=== PATIENT | male | born 1990 | race Caucasian/White ===

== ENCOUNTER 2022-12-25 14:39 | Emergency (ER) | payer OTHER, SELFPAY ==
[2022-12-25 14:42] VITALS: BP 134/95; PULSE 114; RESP 18; TEMP 36.8; O2SAT 99; BMI 25.9
--- NOTE | 2022-12-25 15:22 | ED.VIS.GI ---
HPI HPI - GI History of Present Illness Chief Complaint: GI Bleed Detail of Chief Complaint: Rectal bleeding Informant: patient Narrative Narrative: Patient presents to the emergency department with rectal bleeding since yesterday. Patient feels a small amount of discomfort to his rectum and feels a lump back there and thinks he might have a hemorrhoid. Patient denies any abdominal pain. He had no fever or chills or sweats. Denies feeling lightheaded or dizzy. He denies feeling weak. Patient went to work today and saturated through 2 pair of underwear so he comes in for evaluation. PFSH PFSH Home Medications hydrocortisone acetate 25 mg rectal suppository (Anusol-HC) 25 mg ID DAILY #12 ea 12/25/22 [Rx Last Taken Unknown] Allergy/AdvReac Type Severity Reaction Status Date / Time peanut Allergy Anaphylaxis Verified 12/25/22 14:41 ROS ROS ED Review of Systems ROS Unobtainable: other Constitutional Constitutional ED: Reports lethargy; Denies chills, fever(s), sweats or weight loss Eyes Eyes: Denies blurry vision, change in vision or diplopia ENT ENT ED: Denies rhinorrhea or sore throat Cardiovascular Cardiovascular: Denies chest pain, orthopnea or racing heartbeat Respiratory/Chest Respiratory/Chest: Denies cough, dyspnea, dyspnea on exertion, orthopnea or sputum Gastrointestinal Gastrointestinal: Reports other Details: Rectal bleeding ; Denies abdominal pain, diarrhea, nausea or vomiting Genitourinary Genitourinary ED: Denies dysuria, hematuria or urinary frequency Musculoskeletal Musculoskeletal: Denies arthralgias, back pain, myalgias or neck pain Integumentary Denies abscess, Abrasions or rash Neurologic Neurologic: Denies headache(s) or weakness Psychiatric Psychiatric: Denies anxiety, depression or suicidal thoughts Endocrine Endocrinology: Denies polydipsia, polyphagia or polyuria Hematologic/Lymphatic Hematologic/Lymphatic: Denies easy bleeding, easy bruising or lymphadenopathy Allergic/Immunologic Allergic/Immunologic ED: Denies mouth swelling, tongue swelling or urticaria EXAM Physical Exam Const Vital Signs: 12/25/22 14:42 Temperature 98.2 F Temperature Source Temporal Pulse Rate 114 H Respiratory Rate 18 Blood Pressure 134/95 H Blood Pressure Mean 108 Pulse Ox 99 Oxygen Delivery Method Room Air Positive well nourished and well developed General Appearance ED: well developed and NAD HEENT Reports TM's clear and moist mucous membranes normocephalic and atraumatic; Negative for trauma or tenderness Tympanic Membrane ED: Yes TM's clear Eyes PERRL and EOMs intact bilaterally General Eye ED: Negative for pale conjunctiva or scleral icterus Neck no lymphadenopathy, supple and no JVD General: Negative for tenderness Chest Wall inspection of chest normal and palpation of chest normal Chest: Negative for tenderness Resp normal respiratory effort and clear to auscultation bilaterally Effort and Inspection: Negative for respiratory distress or pain with movement Auscultation: Negative for rhonchi, wheezes or diminished lung sounds Cardio regular rate, regular rhythm, S1 normal heart sound, S2 normal heart sound and no murmurs Peripheral Pulses: pulses 2+ throughout GI normal to inspection, nondistended, normoactive bowel sounds, soft to palpation, non-tender, non-distended and no masses GI Narrative: On rectal exam. Patient has a ulcerated and thrombosed hemorrhoid with clot extruding from the hemorrhoid at approximately 12 o'clock position. Back/Spine no CVA tenderness and no thoracic nor lumbar tenderness Extremity normal to inspection General Extremety ED: Negative for edema General Extremity: Negative for edema Neuro oriented x3, CN's II-XII intact bilaterally, no sensory deficits noted and gait normal Sensorium / Orientation: awake, alert, oriented to person, oriented to place and oriented to time Motor Exam: strength 5/5 throughout and strength abnormal Psych mental status grossly normal Skin no rashes or lesions noted and no wounds MDM MDM MDM Narrative Medical decision making narrative: Patient presents with a thrombosed ulcerated hemorrhoid. Using gentle pressure I was able to remove the clot from the thrombosed hemorrhoid which patient tolerated well. He had no significant bleeding associated with this. Recommended sitz bath's and Anusol to the area. Recommended a stool softener to prevent straining. Will refer to general surgery for follow-up should he continue to have issues regarding the hemorrhoids. Discharge Plan Triage Chief Complaint: GI Bleed ED Provider: Areli Klein Dx/Rx/DC Orders Clinical Impression: External hemorrhoid, thrombosed Instructions: Thrombosed Hemorrhoids, ED Hemorrhoids Prescriptions: New hydrocortisone acetate [Anusol-HC] 25 mg suppository 25 mg ID DAILY Qty: 12 0RF Referrals: Dick Yousif MD [Med Staff - Active Staff] - As Needed Disposition Disposition: Home, Self Care
[2022-12-25 15:43] VITALS: PULSE 90; RESP 18; O2SAT 99
== END 2022-12-25 15:47 | disposition home or self-care (01) ==
PROVIDERS: Emergency Provider Emergency Medicine; Visit Provider Emergency Medicine
DX: K64.5 Perianal venous thrombosis (principal)
CPT/HCPCS: 99282